=== PATIENT | male | born 1995 | race Two or more races ===

== ENCOUNTER 2020-08-29 17:06 | Emergency (ER) | payer OTHER ==
[~2020-08-29] VITALS: Ht 188 cm; Wt 103.4 kg
[~2020-08-29 17:06] MED LIST: DICLOFENAC POTA50 MG PO; ROBAXIN-750750 MG PO
== END 2020-08-29 21:45 | disposition home or self-care (01) ==
LOC: ER 17:06
DX: B34.9 Viral infection, unspecified (principal); Z03.818 Encounter for observation for suspected exposure to other biological agents ruled out; R51.9 Headache, unspecified; R42 Dizziness and giddiness